=== PATIENT | male | born 1965 | race Caucasian/White ===

== ENCOUNTER 2016-12-29 17:50 | Inpatient (IN) | payer OTHER ==
[~2016-12-29] VITALS: Ht 182.9 cm; Wt 77.1 kg
--- NOTE | ~2016-12-29 | PN ---
Unit #: [id number] #: [id number] Patient: CONSTANTINE EASON [id number] [facility] [address] [place] [address] [id number] MR#: [id number] NAME: CONSTANTINE EASON ROOM: [facility] Age: 51 Sex: M Admission Date: 12/29/2016 : 1965 Attending Physician: Amy Aaron M.D. Admitting Physician: Amy Aaron M.D. Primary Care Physician: Generic Doctor Not In System [facility] PROGRESS NOTES DATE 12/31/2016 DISCUSSION Mr. Eason is a 51-year-old white male who was seen today and chart was reviewed and case was discussed with the staff who report patient had a rough day yesterday and was actually engaging in self-harming behavior and was trying to choke himself and was put on a room lockout. He stated that he can just walk out into any of the patient's room and kill himself and since then he has been put on one-to-one level of precautions. He has been taking the medications and tolerating them fairly well though does not appear to be showing a therapeutic response. MENTAL STATUS EXAMINATION Middle-aged white male who was casually dressed with fair personal hygiene and appears to be in no acute distress or discomfort. He was awake and alert on interaction with intact orientation. His mood was anxious and depressed with congruent affect. His speech is slow and goal-directed. He reports having suicidal ideations but denies any homicidal ideations. His insight and judgement remains slightly impaired. TREATMENT PLAN 1. Will continue on his current medications and treatment protocol. Will monitor his response to the medications and make further adjustments as needed. 2. Will continue to follow up. Dictated by... Jeanie David/dank TD: 12/31/2016 18:12 JOB #: [id number] Unit #: [id number] #: [id number] Patient: CONSTANTINE EASON PROGRESS NOTES Page 1 of 1 X Amy Aaron MD X PROGRESS NOTE
--- NOTE | ~2016-12-29 | CO ---
Unit #: [id number] #: [id number] Patient: CONSTANTINE EASON [id number] [place] [address] [id number] I MR#: [id number] NAME: CONSTANTINE EASON ROOM: [facility] Age: 51 Sex: M Admission Date: 12/29/2016 : 1965 Attending Physician: Amy Aaron M.D. Consultation Date: 01/01/2017 CONSULTATION REPORT SUBJECTIVE Constantine is a 51-year-old who was noted to have some left lower extremity swelling by nursing staff at time of admission. He was seen for his admission H and P on 12/30/2016. At that time, the left lower extremity was noted to have a 1+ edema half way up his calf with a negative Homans sign. Numerous varicose veins were noted in the left leg. ASSESSMENT Left lower extremity swelling most likely secondary to multiple varicose veins. At the time of examination, there was no indication of acute deep venous thrombosis. PLAN Observe. If anything else develops, we will recheck and proceed accordingly. Note, on 01/02/2017, he was seen by a nurse practitioner and a venous Doppler was ordered. This showed a chronic appearing partially occlusive thrombus in the left superficial femoral vein with evidence of recannulization. No evidence of DVT. He was started on Xarelto and instructed to follow up with his PCP. Dictated by... Janelle Paredes P.A.-C. for Jeanie Mayen/rosa TD: 01/08/2017 20:57 JOB #: [id number] CONSULTATION REPORT Page 1 of 1 X Janelle Paredes CONSULTATION REPORT
--- NOTE | ~2016-12-29 | PN ---
Unit #: [id number] #: [id number] Patient: CONSTANTINE EASON [id number] [facility] [address] [place] [address] [id number] I MR#: [id number] NAME: CONSTANTINE EASON ROOM: [facility] Age: 51 Sex: M Admission Date: 12/29/2016 : 1965 Attending Physician: Amy Aaron M.D. Admitting Physician: Amy Aaron M.D. Primary Care Physician: Generic Doctor Not In System [facility] PROGRESS NOTES DATE OF SERVICE 01/01/2017 DISCUSSION Mr. Eason is a 51-year-old white male who was seen today. Chart was reviewed and case was discussed with the staff. He remains anxious, withdrawn, depressed, and has been kept on suicide precautions with room lockout and close monitoring though one-to-one level of care has been discontinued. He has been taking the medications and tolerating them fairly well though has not been able to show a therapeutic response. MENTAL STATUS EXAMINATION Middle-aged white male who is casually dressed with fair personal hygiene, appears to be in no acute distress or discomfort. He was awake and alert with intact orientation. His mood has been anxious with congruent affect. He denies any suicidal or homicidal ideations. His insight and judgment remain slightly impaired. TREATMENT PLAN 1. We will continue him on his current medications and treatment protocol. We will monitor his response to the medications and make further adjustments as needed. 2. We will continue to follow up. Dictated by... Jeanie David/elianag TD: 01/01/2017 08:35 JOB #: [id number] Unit #: [id number] #: [id number] Patient: CONSTANTINE EASON PROGRESS NOTES Page 1 of 1 X Amy Aaron MD PROGRESS NOTE
--- NOTE | ~2016-12-29 | PN ---
Unit #: [id number] #: [id number] Patient: CONSTANTINE EASON [id number] [facility] [address] [place] [address] [id number] I MR#: [id number] NAME: CONSTANTINE EASON ROOM: [facility] Age: 51 Sex: M Admission Date: 12/29/2016 : 1965 Attending Physician: Amy Aaron M.D. Admitting Physician: Amy Aaron M.D. Primary Care Physician: Generic Doctor Not In System [facility] PROGRESS NOTES DATE January 03, 2017 DISCUSSION Mr. Eason is a 51-year-old white male, who was seen today and chart was reviewed and the case was discussed with the staff. He has been anxious, depressed, withdrawn, and seclusive to himself. Meanwhile, he has been cooperative with the treatment recommendations, and he has been taking the medications and tolerating them fairly well with no reported side effects. MENTAL STATUS EXAMINATION Middle-aged white male, who was casually dressed with fair personal hygiene and appears to be in no acute distress or discomfort. He was awake and alert on interaction with intact orientation. His mood is anxious with a congruent affect. His speech is slow and goal-directed. He denies any suicidal or homicidal ideations. His insight and judgment remain slightly impaired. TREATMENT PLAN 1. We will continue him on his current medications and treatment protocol, and will monitor his response to the medications, and make further adjustments as needed. 2. We will continue to followup. Dictated by... Jeanie David/maryuri TD: 01/04/2017 05:51 JOB #: [id number] Unit #: [id number] #: [id number] Patient: CONSTANTINE EASON PROGRESS NOTES Page 1 of 1 X Amy Aaron MD PROGRESS NOTE
--- NOTE | ~2016-12-29 | PN ---
Unit #: [id number] #: [id number] Patient: CONSTANTINE EASON [id number] [facility] [address] [place] [address] [id number] I MR#: [id number] NAME: CONSTANTINE EASON ROOM: [facility] Age: 51 Sex: M Admission Date: 12/29/2016 : 1965 Attending Physician: Amy Aaron M.D. Admitting Physician: Amy Aaron M.D. Primary Care Physician: Generic Doctor Not In System [facility] PROGRESS NOTES DATE 01/05/2017 DISCUSSION Mr. Eason is a 51-year-old, white male who was seen today and chart was reviewed and case was discussed with the staff. He has been anxious, withdrawn, rather seclusive to himself. Meanwhile, he has been cooperative with treatment recommendations. He has been taking the medication and tolerating them fairly well with no reported side effects. MENTAL STATUS EXAM Middle-aged white male who was casually dressed with fair personal hygiene, appears to be in no acute distress or discomfort. He was awake and alert on interaction with intact orientation. His mood was anxious with congruent affect. His speech was slow and goal directed. He reports having suicidal ideations but denies any homicidal ideations. His insight and judgement remains slightly impaired. TREATMENT PLAN 1. We will continue him on his current medications and treatment protocol. We will monitor his response to the medication and make further adjustments as needed. 2. We will continue to follow up. Dictated by... Jeanie David/xiomara TD: 01/05/2017 23:02 JOB #: [id number] Unit #: [id number] #: [id number] Patient: CONSTANTINE EASON PROGRESS NOTES Page 1 of 1 X Amy Aaron MD PROGRESS NOTE
--- NOTE | ~2016-12-29 | PN ---
Unit #: [id number] #: [id number] Patient: CONSTANTINE EASON [id number] [facility] [address] [place] [address] [id number] I MR#: [id number] NAME: CONSTANTINE EASON ROOM: [facility] Age: 51 Sex: M Admission Date: 12/29/2016 : 1965 Attending Physician: Amy Aaron M.D. Admitting Physician: Amy Aaron M.D. Primary Care Physician: Generic Doctor Not In System [facility] PROGRESS NOTES DATE 01/02/2017 DISCUSSION Mr. Eason is a 51-year-old white male with mood disorder who was seen today and chart was reviewed and case was discussed with the staff. He reports not feeling good and reports having physical, emotional distress and discomfort and wishes he was just and continues to express persistent depressive symptoms with feelings of hopelessness and suicidal thoughts though he has been taking medications and tolerating them fairly well with no reported side effects. MENTAL STATUS EXAMINATION Middle-aged white male who was casually dressed with fair personal hygiene and appears to be in no acute distress or discomfort. He was awake and alert on interaction with intact orientation. His mood was anxious with congruent affect. His speech is slow and goal-directed. He reports having suicidal ideation but denies any homicidal ideations and also denies any auditory or visual hallucinations. His insight and judgement remains slightly impaired. TREATMENT PLAN 1. Will continue his current medications and treatment protocol. Will monitor his response to the medications and make further adjustments as needed. 2. Will continue to follow up. Dictated by... Jeanie David/dank TD: 01/02/2017 17:27 JOB #: [id number] Unit #: [id number] #: [id number] Patient: CONSTANTINE EASON PROGRESS NOTES Page 1 of 1 X Amy Aaron MD X PROGRESS NOTE
--- NOTE | ~2016-12-29 | CO ---
Unit #: [id number] #: [id number] Patient: CONSTANTINE EASON [id number] [facility] [address] [place] [address] [id number] I MR#: [id number] NAME: CONSTANTINE EASON ROOM: [facility] Age: 51 Sex: M Admission Date: 12/29/2016 : 1965 Attending Physician: Amy Aaron M.D. Primary Care Physician: Generic Doctor Not In System Consultation Date: 01/02/2017 CONSULTATION REPORT Ordering provider is Dr. Araon. REASON FOR CONSULTATION Left leg swelling. SUBJECTIVE The patient is very difficult to understand due to slurred speech, however, I was able to determine that the patient complains of left leg swelling and pain. I was unable to determine if the patient had any history of DVT or how long he has been having the pain and swelling. OBJECTIVE The patient did have mild swelling in his left leg. I did not have a tape measure available to compare right to left. He did complain of positive Homans sign. No redness or heat was identified. His pedal pulses were diminished, but they were diminished bilaterally. ASSESSMENT Left leg swelling. PLAN Plan is to get a D-dimer stat. If elevated, we will send to [facility] for venous Doppler. Dictated by... Margoth Morrissey/rosa TD: 01/02/2017 16:39 JOB #: [id number] Unit #: [id number] #: [id number] Patient: CONSTANTINE EASON CONSULTATION REPORT Page 1 of 1 X TAYLOR CONDE APRN X CONSULTATION REPORT
--- NOTE | ~2016-12-29 | PA ---
Unit #: [id number] #: [id number] Patient: CONSTANTINE EASON [id number] [facility] [address] [place] [address] [id number] Raine MR#: [id number] NAME: CONSTANTINE EASON ROOM: [facility] Age: 51 Sex: M Admission Date: 12/29/2016 : 1965 Date of Assessment: 12/30/2016 Attending Physician: Amy Aaron M.D. Admitting Physician: Amy Aaron M.D. Primary Care Physician: Generic Doctor Not In System PSYCHIATRIC ASSESSMENT DATE OF SERVICE 12/30/2016. IDENTIFYING DATA Mr. Eason is a 51-year-old white male, who is a resident of [place], [place], and was transferred to us from [facility] on a voluntary basis. CHIEF COMPLAINT "I've been depressed all my life and I just want to ." HISTORY OF PRESENT ILLNESS Mr. Eason is a 51-year-old white male with history of mood disorder, who was self-referred to the hospital. Upon presentation, he stated that he has been depressed all his life and he just wants to and get it over with and "my ex- is keeping her son from me and I've not seen him in 7 years. 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 I'm just tired of life and it hurts too much after losing my father last year, my mom 4 years ago, and they kept me from killing myself. I've witnessed my sister's when she was 7 years old and I've never recovered and just can't take it anymore." He does report increasing depression, anxiety, poor energy level, psychomotor retardation, feelings of hopelessness and helplessness, poor social support system, and suicidal ideations and as such, was seen to be a danger to self and recommendation for inpatient level of care for safety and stabilization was made and the patient was stepped up to the inpatient unit. SUBSTANCE ABUSE HISTORY The patient denies any alcohol or drug abuse. PAST PSYCHIATRIC HISTORY The patient has had history of psychiatric treatment in the past, though currently he is not active in any treatment program, and review of the medical records indicate that currently he is not seeing a psychiatrist, and is not taking any psychotropic medications. PAST MEDICAL HISTORY Hypertension and history of cerebrovascular accident. ALLERGIES No known medication allergies. Unit #: [id number] #: [id number] Patient: CONSTANTINE EASON CURRENT MEDICATIONS None. PERSONAL AND SOCIAL HISTORY A 51-year-old white male, who reports that he is single, unemployed, and homeless and has poor social support system. MENTAL STATUS EXAMINATION Middle-aged white male who was casually dressed with fair personal hygiene, appears to be in no acute distress or discomfort. He was awake and alert on interaction with intact orientation to time, place, and person. His mood was anxious and depressed with a congruent affect. His speech was slow and restricted in content. He reports having suicidal ideations, but denies any homicidal ideations, and also denies any auditory or visual hallucinations. His insight and judgment remain significantly impaired. DIAGNOSTIC IMPRESSION Psychiatric: Major depressive disorder, recurrent, moderate, without psychotic features. Medical: Hypertension and history of cerebrovascular accident. Stressors: Moderate psychosocial stressors. TREATMENT PLAN 1. The patient has presented with a history of mood disorder, and has been decompensating. We will recommend inpatient hospitalization for safety and stabilization. We will start him back on his home medications. We will adjust the medications and monitor response. 2. Supportive therapy was provided to the patient. 3. Safe, structured, and nourishing environment will be provided. ESTIMATED LENGTH OF STAY 5 to 7 days. ABILITY TO HELP SELF Limited. WILLINGNESS TO HELP SELF The patient appears to be willing to help self. STRENGTHS 1. Communicative. 2. Cooperative. PROBLEMS 1. Chronic dysphoric symptoms. 2. Poor social support system. DISCHARGE CRITERIA This will be contingent upon the patient's ability to show resolution of his depression and anxiety and his ability to stay safe to himself, particularly after discharge from the hospital. Dictated by... Amy Aaron M.D. Unit #: [id number] #: [id number] Patient: CONSTANTINE EASON IAA/modl TD: 12/30/2016 07:56 JOB #: [id number] PSYCHIATRIC ASSESSMENT Page 1 of 1 X Amy Aaron MD PSYCHIATRIC ASSESSMENT
--- NOTE | ~2016-12-29 | CO ---
Unit #: [id number] #: [id number] Patient: CONSTANTINE EASON [id number] [facility] [address] [place] [address] [id number] I MR#: [id number] NAME: CONSTANTINE EASON ROOM: [facility] Age: 51 Sex: M Admission Date: 12/29/2016 : 1965 Attending Physician: Amy Aaron M.D. Primary Care Physician: Generic Doctor Not In System Consultation Date: 01/03/2017 CONSULTATION REPORT This is a followup on left leg swelling. The patient was seen yesterday and a D-dimer was ordered that level was noted to be elevated. The patient was sent to the emergency room at [facility] for a stat Doppler. The Doppler did come back positive for an acute DVT. The patient was started on Xarelto starter pack and encouraged to follow up with his primary care provider, however, since he is at [facility] and he will follow up with us. His Xarelto was already started. No other orders at this time. Dictated by... Margoth Morrissey/rosa TD: 01/03/2017 20:42 JOB #: [id number] CONSULTATION REPORT Page 1 of 1 X TAYLOR CONDE APRN CONSULTATION REPORT
--- NOTE | ~2016-12-29 | DS ---
Unit #: [id number] #: [id number] Patient: [facility]ONZO [id number] [facility] [address] [place] [address] [id number] I MR#: [id number] NAME: CONSTANTINE ALONZO ROOM: [facility] Age: 51 Sex: M Admission Date: 12/29/2016 : 1965 Discharge Date: 01/06/2017 Attending Physician: Amy Aaron M.D. Primary Care Physician: Generic Doctor Not In System DISCHARGE SUMMARY IDENTIFYING DATA Mr. Alonzo is a 51-year-old white male, who is a resident of [place], [place], and was transferred to us from [facility] on a voluntary basis. DISCHARGE DIAGNOSES Psychiatric: Major depressive disorder, recurrent, moderate, without psychotic features. Medical: Hypertension and history of cerebrovascular disease. Stressors: Mild psychosocial stressors. HISTORY OF PRESENT ILLNESS Please see initial psychiatric evaluation for details. PAST PSYCHIATRIC HISTORY Please see initial psychiatric evaluation for details. PAST MEDICAL HISTORY Please see initial psychiatric evaluation for details. HOSPITAL COURSE The patient was admitted to the adult psychiatric unit at [facility] ke[facility] Polanco and was oriented to the hospital environment. Routine p.r.n. medications were initiated, and he was started on Celexa and Risperdal as the patient was complaining of persistent depression and suicidal thoughts and was initially put on one-to-one suicidal precautions; however, he was seen to be taking the medications regularly and was doing somewhat better, was taken off the suicidal watch and medications were maintained and he was closely monitored and was able to show a fairly decent and therapeutic response with improvement in depression and anxiety, and as such, it was decided that he will be discharged home and will continue treatment on an outpatient basis. DISCHARGE MEDICATIONS Celexa 20 mg a day for depression and Risperdal 1 mg b.i.d. for depression. DISCHARGE CONDITION Stable. PROGNOSIS Fair. Dictated by... Unit #: [id number] #: [id number] Patient: CONSTANTINE ALONZO Jeanie David/modl TD: 01/06/2017 07:23 JOB #: [id number] DISCHARGE SUMMARY Page 1 of 1 X Amy Aaron MD DISCHARGE SUMMARY
--- NOTE | ~2016-12-29 | PN ---
Unit #: [id number] #: [id number] Patient: CONSTANTINE EASON [id number] [facility] [address] [place] [address] [id number] I MR#: [id number] NAME: CONSTANTINE EASON ROOM: [facility] Age: 51 Sex: M Admission Date: 12/29/2016 : 1965 Attending Physician: Amy Aaron M.D. Admitting Physician: Amy Aaron M.D. Primary Care Physician: Generic Doctor Not In System [facility] PROGRESS NOTES DATE January 04, 2017 DISCUSSION Mr. Eason is a 51-year-old white male, who was seen today and chart was reviewed and the case was discussed with the staff. He has been anxious, withdrawn, depressed, and rather seclusive to himself. Meanwhile, he has been cooperative with the treatment recommendations, and he has been taking the medications and tolerating them fairly well with no reported side effects. He reports persistent depressive symptoms. He has had feelings of hopelessness and helplessness. MENTAL STATUS EXAMINATION Middle-aged white male, who was casually dressed with fair personal hygiene and appears to be in no acute distress or discomfort. He was awake and alert on interaction with intact orientation. His mood is anxious and depressed with a congruent affect. Speech is slow and restricted in content. He reports having suicidal ideations but denies any homicidal ideations, and also denies any auditory or visual hallucinations. His insight and judgment remain significantly impaired. TREATMENT PLAN 1. We will continue him on his current medications and treatment protocol, and will monitor his response to the medications, and make further adjustments as needed. 2. We will continue to followup. Dictated by... Jeanie David/maryuri TD: 01/05/2017 06:25 JOB #: [id number] Unit #: [id number] #: [id number] Patient: CONSTANTINE EASON PROGRESS NOTES Page 1 of 1 X Amy Aaron MD PROGRESS NOTE
--- NOTE | ~2016-12-29 | CO ---
Unit #: [id number] #: [id number] Patient: CONSTANTINE EASON [id number] [facility] [address] [place] [address] [id number] I MR#: [id number] NAME: CONSTANTINE EASON ROOM: [facility] Age: 51 Sex: M Admission Date: 12/29/2016 : 1965 Attending Physician: Amy Aaron M.D. Primary Care Physician: Generic Doctor Not In System Consultation Date: 01/01/2017 CONSULTATION REPORT SUBJECTIVE Constantine is a 51 year old, who was noted to have some left lower extremity swelling by nursing staff at the time of admission. He was seen for his admission H and P, on 12/30/16. At that time, the left lower extremity was noted to have 1+ edema half way up his calve with a negative Parag's sign. Numerous varicose veins were noted in the left leg. ASSESSMENT Left lower extremity swelling most likely secondary to multiple varicose veins. At time of examination, there was no indication of acute DVT. PLAN Observe, if anything else develops will recheck and proceed accordingly. NOTE: On 01/02/17, he was seen by nurse practitioner and a venous Doppler was ordered. This showed a chronic appearing partially occlusive thrombus in the left superficial femoral vein with evidence of recanalization. No evidence of DVT. He was started on Xarelto and instructed to follow up with his PCP. Dictated by... Janelle Paredes P.A.-C. for Jeanie Mayen/maryuri TD: 01/08/2017 11:25 JOB #: [id number] CONSULTATION REPORT Page 1 of 1 X Janelle Paredes CONSULTATION REPORT
--- NOTE | ~2016-12-29 | HP ---
Unit #: [id number] #: [id number] Patient: CONSTANTINE EASON [id number] [place] [address] [id number] MR#: [id number] NAME: CONSTANTINE EASON ROOM: [facility] Age: 51 Sex: M Admission Date: 12/29/2016 : 1965 Attending Physician: Amy Aaron M.D. Admitting Physician: Amy Aaron M.D. Primary Care Physician: Generic Doctor Not In System HISTORY AND PHYSICAL HISTORY OF PRESENT ILLNESS Constantine is a 51 year old admitted to [address] [place] [address] with depression and verbalizing wanting to hurt himself. PAST MEDICAL HISTORY 1. High blood pressure. 2. History of CVA. PAST SURGICAL HISTORY Nothing reported. ALLERGIES No known drug allergies. SOCIAL HISTORY Smokes one pack per day. Denies alcohol and illicit drug use. FAMILY HISTORY Medically noncontributory. REVIEW OF SYSTEMS CONSTITUTIONAL: No fever or chills. HEENT: Denies any sore throat, ear pain or runny nose. CARDIOVASCULAR: Denies chest pain, irregular heart rhythm or palpitations. CHEST: Denies shortness of breath or cough. No hemoptysis. GASTROINTESTINAL: Denies nausea, vomiting, diarrhea or chronic constipation. ENDOCRINE: Denies history of increased thirst or urination. No recent significant weight loss or gain. GENITOURINARY: Denies dysuria, frequency, or hematuria. SKIN: Denies any rashes. HEMATOLOGIC: Denies history of increased bleeding or bruising. MUSCULOSKELETAL: Denies any hot, swollen joints. No generalized muscle pain. NEUROLOGIC: Denies problems with vision or speech. No frequent, severe headaches. No numbness, tingling or weakness in any extremities. Denies loss of bladder or bowel control. CURRENT MEDICATIONS 1. Celexa 20 mg q day 2. Nicotine patch 14 mg q day 3. Milk of Magnesia p.r.n. Unit #: [id number] #: [id number] Patient: CONSTANTINE EASON 4. Maalox p.r.n. 5. Tylenol p.r.n. PHYSICAL EXAMINATION GENERAL: Alert, well-nourished, in no apparent distress. VITAL SIGNS: Blood pressure 138/82, heart rate 60, respirations 16, temperature 98.6. WEIGHT: 170. HEIGHT: 6 foot 0 inches. SKIN: Warm and dry without rash or lesion. HEENT: Normocephalic. TMs not viewed. Oral and nasal passages clear. Conjunctivae clear. Pupils equal, round and reactive to light and accommodation. Extraocular movements intact. NECK: Supple without lymphadenopathy or thyromegaly. HEART: Regular rate and rhythm without murmur. LUNGS: Clear. ABDOMEN: Soft, nontender. : Not done. EXTREMITIES: No evidence of cyanosis or clubbing. He has trace to 1 plus edema in his left leg half up his calf. Right leg normal. Negative Homans. . NEUROLOGICAL: Grossly within normal limits. Cranial Nerves: II: Visual hill are intact. III, IV AND : Extraocular movements are intact. Pupils are equal, round and reactive to light. V: Facial sensation is grossly normal. VII: Facial movements and expression are normal. VIII: Auditory acuity grossly intact. IX, X: Uvula is midline. Phonation is normal. XI: Patient shrugs shoulders and turns head normally. XII: Tongue protrudes in the midline. Sensory and Motor Function: Sensory and motor sensation is grossly normal. Motor: moves all extremities well. Coordination: Gait is normal. Deep Tendon Reflexes: Intact. IMPRESSION Psychiatric admission. RECOMMENDATIONS PSYCHIATRIC: Per psychiatrist. MEDICAL: I see no contraindications to participating in facility's activities. MEDICAL PROGNOSIS Good. MEDICAL CONDITION Stable. Dictated by... Janelle Paredes P.A.-C. for Jeanie Mayen/[facility]omara Unit #: [id number] #: [id number] Patient: CONSTANTINE EASON TD: 12/30/2016 21:17 JOB #: [id number] HISTORY AND PHYSICAL Page 1 of 1 X Janelle Paredes HISTORY AND PHYSICAL
[2016-12-30 09:44] LABS: BASOPHIL% 0.6 % (0-2.5); EOSINOPHIL# 0.4 X10e3 (0-0.7); EOSINOPHIL% 4.9 % (0.0-7.0); HEMATOCRIT 35.3 % (38.0-50.0); HEMOGLOBIN 11.8 gm/dL (13.0-16.0); LYMPHOCYTE# 2.4 X10e3 (1.0-3.5); LYMPHOCYTE% 33.4 % (17.0-45.0); MEAN CELL VOLUME 85.1 FL (83-96); MEAN CORPUSCULAR HEMOGLOBIN 28.6 PG (28-34); MEAN CORPUSCULAR HGB CONC 33.6 g/dL (30-36); MEAN PLATELET VOLUME 7.6 FL (6.5-11.5); MONOCYTE# 0.7 X10e3 (0-1.0); MONOCYTE% 9.6 % (3.0-12.0); NEUTROPHIL# 3.7 X10e3 (1.5-7.1); NEUTROPHIL% 51.5 % (40-75); PLATELET COUNT 266 X10e3 (140-420); RED BLOOD COUNT 4.14 X10e (3.90-5.60); RED CELL DISTRIBUTION WIDTH 13.1 % (11.0-15.5); WHITE BLOOD COUNT 7.2 X10e3 (4.0-10.5)
[2016-12-30 09:46] LABS: DIFF IND NO
[2016-12-30 10:08] LABS: ALBUMIN SERUM 3.2 g/dL (3.5-5.0); BILIRUBIN,TOTAL 0.9 mg/dL (0.2-2.0); BUN/CREATININE RATIO 13.63; CALCIUM SERUM 8.8 mg/dL (8.4-10.2); CREATININE SERUM 1.1 mg/dL (0.6-1.4); GLOM FILT RATE Estimated 77.9 mL/min (>60); POTASSIUM 3.7 mmol/L (3.5-5.1); PROTEIN TOTAL SERUM 5.7 g/dL (6.0-8.3)
== END 2017-01-06 10:00 | disposition home or self-care (01) | DRG 885 ==
LOC: P1S 23:49
PROVIDERS: Psychiatry & Neurology Psychiatry
DX: F33.1 Major depressive disorder, recurrent, moderate (principal); I82.402 Acute embolism and thrombosis of unspecified deep veins of left lower extremity; I10 Essential (primary) hypertension; Z86.73 Personal history of transient ischemic attack (TIA), and cerebral infarction without residual deficits; Z59.0 Homelessness
CPT/HCPCS: 80053; 82947; 85025; 85379

== ENCOUNTER 2017-01-02 16:47 | Emergency (ER) | payer OTHER ==
[~2017-01-02] VITALS: Ht 182.9 cm; Wt 81.6 kg
--- NOTE | ~2017-01-02 | US85 ---
[facility] A Service of [facility] RADIOLOGY TEXT RESULTS PATIENT: CONSTANTINE EASON LOCATION: [place] : [birth year] UNIT #: [id number] AGE: [address]: Adolfo Uriostegui MD SEX: M ORDER DR: [id number] [facility] [address] [place], [place] [address] [id number] MR#: [id number] Acc #: [id number] NAME: CONSTANTINE EASON : 1965 SEX: M STUDY DATE/TIME: 01/02/2017 17:25 UNIT: [place] ROOM: STUD[place] [facility] [place] [email or web address] Attending Physician: Adolfo Uriostegui M.D. Ordering Physician: Adolfo Uriostegui M.D. Primary Care Physician: Primary Care Physician No MEDICAL IMAGING REPORT This report is preliminary unless electronic signature is present EXAM Left lower extremity venous duplex ultrasound, 01/02/2017 HISTORY 51-year-old male with left lower extremity pain and swelling for 3 years. COMPARISON None FINDINGS Real-time degroot-scale, color Doppler, and spectral Doppler analysis of the left lower extremity deep venous system demonstrates chronic-appearing partially occlusive thrombus in the mid left superficial femoral vein with evidence of recanalization. Remainder of the left lower extremity deep venous system demonstrates normal venous waveforms with normal compressibility and augmentation. IMPRESSION Chronic-appearing partially occlusive thrombus in the mid left superficial femoral vein with evidence of recanalization. Remainder of the left lower extremity deep venous system is negative for DVT. Dictated by... Sahil Shahid M.D. THIS IS AN ELECTRONICALLY VERIFIED REPORT Sahil Shahid M.D. at 01/04/2017 10:46 AM NASH/masoud TD: 01/03/2017 18:03 JOB #: [id number] MEDICAL IMAGING REPORT [facility] A Service of [facility] RADIOLOGY TEXT RESULTS PATIENT: CONSTANTINE EASON LOCATION: [place] : [birth year] UNIT #: [id number] AGE: [address]: Adolfo Uriostegui MD SEX: M ORDER DR: Page 1 of 1 COPY
[2017-01-02 19:16] LABS: PARTIAL THROMBOPLASTIN TIME 25.3 SECONDS (23.5-31.3); PROTHROMBIN TIME (PATIENT) 10.7 SECONDS (10.0-11.7)
== END 2017-01-02 21:30 ==
LOC: CED 16:47
PROVIDERS: Emergency Medicine
DX: I82.512 Chronic embolism and thrombosis of left femoral vein (principal)
CPT/HCPCS: 36415; 85610; 85730; 93971; 99284